=== PATIENT | male | born 1970 | race Caucasian/White ===

== ENCOUNTER 2020-10-14 15:23 | Emergency (ER) | payer OTHER ==
[2020-10-14 15:39] LABS: URINE BILIRUBIN NEGATIVE (Negative); URINE BLOOD NEGATIVE (Negative); URINE CLARITY CLEAR; URINE COLOR YELLOW; URINE GLUCOSE-RANDOM* 3+ (Negative); URINE KETONES NEGATIVE (Negative); URINE LEUKOCYTES-REFLEX NEGATIVE (Negative); URINE NITRITE-REFLEX NEGATIVE (Negative); URINE PROTEIN (DIPSTICK) NEGATIVE (Negative); URINE UROBILINOGEN 0.2 E.U./dl (0.2-1.0)
[2020-10-14] MEDS ORDERED: FLEXERIL PO (16:05)
[2020-10-14] MEDS ORDERED: IBUPROFEN 800800 MG PO (16:05)
== END 2020-10-14 16:37 | disposition home or self-care (01) ==
LOC: ER 15:23
PROVIDERS: Emergency Medicine
DX: M54.6 Pain in thoracic spine (principal); I48.91 Unspecified atrial fibrillation